=== PATIENT | male | born 1995 | race Two or more races ===

== ENCOUNTER 2018-03-28 15:47 | Emergency (ER) | payer OTHER ==
[2018-03-28 15:53] VITALS: BP 159/93
--- NOTE | 2018-03-28 15:55 | EDPHY ---
H & P Stated Complaint: Twisted L ankle last night Time Seen by Provider: 03/28/18 15:54 - Medical/Surgical History Hx Asthma: No Hx Chronic Respiratory Disease: No Hx Diabetes: No Hx Cardiac Disease: No Hx Renal Disease: No Hx Cirrhosis: No Hx Alcoholism: No Hx HIV/AIDS: No Hx Splenectomy or Spleen Trauma: No Other PMH: denies - Social History Smoking Status: Current every day smoker Constitutional: Initial Vital Signs Temperature (C) 36.7 C 03/28/18 15:49 Heart Rate 88 03/28/18 15:49 Respiratory Rate 18 03/28/18 15:49 Blood Pressure 159/93 H 03/28/18 15:49 O2 Sat (%) 95 03/28/18 15:49 O2 Delivery Mode Room Air Medical Decision Making ED Course/Re-evaluation: CHIEF COMPLAINT: HISTORY OF PRESENT ILLNESS: must have 4 elements: Location, Quality, Severity , Duration, Timing, Context, Modifying Factors, Associated Signs and Symptoms REVIEW OF SYSTEMS: A comprehensive 10 system review of systems is otherwise negative aside from elements mentioned in the history of present illness and medical decision making. PHYSICAL EXAM: HR, BP, O2 Sat, RR. Temp noted General Appearance: Alert, well hydrated, appropriate, and non-toxic appearing. Head: Atraumatic without scalp tenderness or obvious injury Eyes: Pupils equal, round, reactive to light and accommodation, EOMI, no trauma , no injection. Ears: Clear bilaterally, no perforation, normal landmarks Nose: Atraumatic, no rhinorrhea, clear. Throat: There is no erythema or exudates, no lesions, normal tonsils, mucus membranes moist. Neck: Supple, 2+ carotid upstroke, nontender, no lymphadenopathy. Respiratory: No retractions, no distress, no wheezes, and no accessory muscle use. Lungs are clear to auscultation bilaterally. Cardiovascular: Regular rate and rhythm, no murmurs, rubs, or gallops. Bilateral carotid, radial, dorsalis pedis, and posterior tibial pulses intact. Good capillary refill all extremities. Gastrointestinal: Abdomen is soft, nontender, non-distended, no masses, no rebound, no guarding, no peritoneal signs. Musculoskeletal: Normal active ROM of all extremities, atraumatic. Neurological: Alert, appropriate, and interactive. The patient has normal DTRs and non-focal cranial nerves, motor, sensory, and cerebellar exam. Skin: No rashes, good turgor, no nodules on palpation. Past medical history: Past surgical history: Family history: Social history: DIAGNOSTICS/PROCEDURES/CRITICAL CARE TIME: DIFFERENTIAL DIAGNOSIS: MEDICAL DECISION MAKING: Departure - Departure Referrals: NONE *PRIMARY CARE P,. [Primary Care Provider] - As per Instructions
--- NOTE | 2018-03-28 16:03 | EDPHY ---
General Time Seen by Provider: 03/28/18 15:54 Narrative: CLINICAL IMPRESSION: Left foot contusion ASSESSMENT/PLAN: 22-year-old male presents to the emergency department with left foot pain after he twisted the foot at a bar yesterday. He is ambulatory but with pain. X- rays of the ankle and foot showed no radiologic evidence of acute fracture, dislocation, Lisfranc injury, or acute abnormality. Patient is neurovascularly intact, no open wounds. He was provided crutches for comfort, rice treatment discussed, orthopedic referral given, warning signs return to ED sooner alignment discharge. DIFFERENTIAL DX: Differential includes but not limited to ankle fracture, ankle dislocation, ankle sprain ED PROCEDURES: Procedure: Splint placement. Patient was provided crutches ED COURSE: 4:40 p.m. preliminary view of ankle and foot x-ray shows no acute fracture, dislocation or Lisfranc injury. Patient updated on these results. Home care discussed, Ortho referral provided. CHIEF COMPLAINT: Left foot pain HPI: 22-year-old male presents to the emergency department with complaints of left foot pain after he rolled his foot and ankle while at a club last night. He reports he is able to bear weight but with pain. No prior foot or ankle surgery. No loss of sensation or open wounds. No proximal leg pain. No other injuries PAST MEDICAL HISTORY: None reported Pertinent Past Surgical History: None reported Social History: Smoker REVIEW OF SYSTEMS: All other systems negative Constitutional: No fever, no chills Musculoskeletal: No deformity, + joint pain Skin: No rashes, color change or open wounds. Neurological: No sensory loss or weakness. PHYSICAL EXAM: General Appearance: Alert, oriented, appropriate for age, cooperative, NAD, well hydrated, non-toxic appearing, VSS, no hypoxia. Neurological: Alert and oriented x 3, normal sensation and strength of extremities Skin: Warm, dry, no rashes, no nodules on palpation. Musculoskeletal: Swelling noted over the mid 4th and 5th metatarsals with reproducible pain to palpation. No pain along the medial or lateral malleolus, distal neurovascular exam intact. No open wounds. Full range of motion. Ambulates with limp. MEDICAL DECISION MAKING: Patient was seen independently. Secondary supervising physician at time of evaluation was Dr Charles. Diagnosis: Left foot contusion . New, requires workup Summary: See assessment and plan for summary of ED visit Independent visualization of images, tracing, or specimens yes. Patient Progress: Stable. - Diagnostics Imaging Results: Imaging Impressions Ankle X-Ray 03/28/18 15:53 Impression: Normal. No explanation for pain. Foot X-Ray 03/28/18 16:12 Impression: There is no acute osseous abnormality identified. If there is continuing clinical concern regarding an occult stress fracture, MR imaging could be considered. - History Smoking Status: Current every day smoker - Objective Vital Signs: Initial Vital Signs Temperature (C) 36.7 C 03/28/18 15:49 Heart Rate 88 03/28/18 15:49 Respiratory Rate 18 03/28/18 15:49 Blood Pressure 159/93 H 03/28/18 15:49 O2 Sat (%) 95 03/28/18 15:49 O2 Delivery Mode Room Air Departure - Departure Disposition: Home, Routine, Self-Care Clinical Impression: Contusion, foot Qualifiers: Encounter type: initial encounter Laterality: left Qualified Code(s): S90.32XA - Contusion of left foot, initial encounter Condition: Good Instructions: Swollen Joint (ED) Additional Instructions: DISCHARGE INSTRUCTIONS FROM YOUR DOCTOR Thank you for visiting our emergency department today. Please keep in mind that discharge from the emergency department does not mean that there is nothing wrong - it simply means that we have not identified an emergency condition that requires further evaluation or treatment in the hospital. You should always plan to follow up with primary care for re-evaluation of your condition in the next 2-3 days. If you have been referred to a specialist, please call as soon as possible (today or tomorrow) to schedule your follow up appointment at the appropriate time. X-RAYS OF YOUR LEFT ANKLE AND FOOT DID NOT REVEAL ANY ACUTE FRACTURE. YOU MAY HAVE SUSTAINED A DEEP TISSUE CONTUSION OR LIGAMENTOUS INJURY. AN ORTHOPEDIC REFERRAL WAS GIVEN IF PAIN CONTINUES FOR MORE THAN 3-5 DAYS. REST AND ELEVATE THE AFFECTED EXTREMITY MUCH POSSIBLE. ICE THE AFFECTED AREAS 20 MIN ON, 20 MIN OFF FOR THE NEXT SEVERAL DAYS. PLEASE USE TYLENOL OR IBUPROFEN OVER THE COUNTER IN APPROPRIATE DOSES OUTLINED ON YOUR DISCHARGE PAPERS. TAKE IBUPROFEN WITH FOOD AND A LARGE GLASS OF WATER. RETURN TO THE EMERGENCY DEPARTMENT FOR SEVERE PAIN, LOSS OF SENSATION, INABILITY TO WALK, FEVER OR ANY OTHER CONCERN. People present with illnesses and injuries in different ways, and it is always possible that we have missed something. You may always return for re-evaluation if symptoms worsen or if they are not improving or if you develop new/different symptoms. Again, thank you for choosing our emergency department. We hope that you feel better. Referrals: NONE *PRIMARY CARE P,. [Primary Care Provider] - As per Instructions Osman Chambers MD [Medical Doctor] - 3-4 days, if not improved
== END 2018-03-28 16:48 | disposition home or self-care (01) ==
DX: S90.32XA Contusion of left foot, initial encounter (principal); X50.9XXA Other and unspecified overexertion or strenuous movements or postures, initial encounter; Y92.89 Other specified places as the place of occurrence of the external cause; Y93.9 Activity, unspecified; Y99.9 Unspecified external cause status